=== PATIENT | female | born 1965 | race Caucasian/White ===

== ENCOUNTER 2024-06-22 20:09 | Emergency (ER) | payer OTHER, SELFPAY ==
[2024-06-22 20:13] VITALS: BP 179/97
--- NOTE | 2024-06-22 21:15 | ED.GENMED ---
History of Present Illness
General
Chief Complaint: Head Injury
Source: patient and spouse
Exam Limitations: none
Time Seen by Provider: 06/22/24 21:05
Nursing documentation reviewed up to this point in time: agreed with
History of Present Illness
History of Present Illness:
58-year-old female presents emergency department after tripping and falling getting off of a chair onto grass. No loss of consciousness. She reports mild neck pain and headache. She is on Eliquis. She has a history of herniated disks in her back.
Past History
Past History
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
ED Past Surgical History: , Gynecological and Orthopedic (left hip replacement 2018, back surgery)
Social History
Tobacco: Non-smoker
Alcohol: None
Drug: None
Personal:
Living: with family
Employment: Employed
Family History
Family History: Other (Mother with DVT)
Review of Systems
Review of Systems
Allergies reviewed?: Yes
All Other Systems: Not applicable
Constitutional: Reports no symptoms
EENT: Reports no symptoms
Respiratory: Reports no symptoms
Cardiac: Reports no symptoms
ABD/GI: Reports no symptoms
: Reports no symptoms
Musculoskeletal: Reports neck pain
Skin: Reports no symptoms
Neurological: Reports headache
Endocrine: Reports no symptoms
Hematologic/Lymphatic: Reports no symptoms
Psychiatric: Reports no symptoms
Phy Exam
Physical Exam
Physical Exam:
Physical Exam
General: no apparent distress, not acutely ill
Neck: supple. no meningeal signs. normal posterior pharynx, mild tenderness to palpation at C5
Heart: equal radial pulses.
HEENT: Pupils equal round reactive to light, EOMI
Lungs: no acute respiratory distress.
Abdomen: Nondistended
Neuro: alert and oriented. no focal neurological deficits cranial nerves II through XII intact
Skin: no rash
Psychiatric: well kept. interactive and cooperative
Extremities: no edema. no calf tenderness. negative homans. good distal pulses
Course
Orders/Labs/Results
Orders:
Orders
06/22/24 20:[address] [CT Head W/o Iv Contrast] Urgent
Comment:
Reason For Exam: FALL HITTING HEAD ON ELIQUIS
06/22/24 20:18
Cervical Spine wo Contrast CT [CT Cervical Spine W/o Iv Contr] Urgent
Comment:
Reason For Exam: fall, head strike with neck pain
Vital Signs
Initial and Last Documented VS:
Initial Vital Signs
Temp Pulse Resp BP Pulse Ox
99.2 F 80 18 179/97 97
06/22/24 20:13 06/22/24 20:13 06/22/24 20:13 06/22/24 20:13 06/22/24 20:13
Last Documented Vital Signs
Temp Pulse Resp BP Pulse Ox
99.2 F 80 18 179/97 97
06/22/24 20:13 06/22/24 20:13 06/22/24 20:13 06/22/24 20:13 06/22/24 20:13
MDM/Problems Addressed
Differential Diagnosis Includes:
C-spine injury, intracranial hemorrhage
MDM/Problems Addressed:
58-year-old female with fall, no signs of intracranial hemorrhage, multi level degenerative disc disease on cervical spine. Thyroid nodule seen. Will follow-up with neurosurgery and primary care for ultrasound of thyroid.
*Radiology
Radiology exam reviewed: radiology read reviewed (CT head no acute findings, see cervical spine shows multilevel herniated disks)
*Pulse Oximetry
Patient hypoxic: no
*Critical Care Note
Total Time (30-74mins, 75-104mins- exclusive of procedures): Not Applicable
Patient Management
Social determinants of health affecting care: Living situation and Strong social support
Escalation/DeEscalation of care consider admission/obs:
Admit not indicated
ED Attending Note
-
Portions of this chart may have been created with voice recognition software.� Occasional wrong word or��sound alike� substitutions may have occurred due to the inherent limitations of voice recognition software.
Discharge Plan
Departure
Patient Disposition: Home (Routine Discharge)
Date of Disposition: 06/22/24
Time of Disposition: 21:18
Patient with high blood pressure during this ER visit?: Yes
Condition: Good
Discharge Problem:
Fall, Multiple thyroid nodules, DDD (degenerative disc disease), cervical
Instructions: Head Injury in Adults (DC), Cervical Sprain ED
Prescriptions:
No Action
acetaminophen [Tylenol Extra Strength] 500 MG tablet
1,000 mg PO Q6HPRN PRN (Reason: headache)
ranitidine HCl [Zantac Maximum Strength] 150 MG tablet
150 mg PO HS
metoprolol tartrate 25 MG tablet
25 mg PO DAILY
Referrals:
Amara Jane MD [Active] - Call in 1-3 days for appt
Activity Restrictions/Additional Instructions:
Follow up with primary care to get ultrasound of your thyroid, it showed nodules on the CT.
Discharge Date and Time
Print Language: LAO
== END 2024-06-22 21:42 | disposition home or self-care (01) ==
LOC: EMR 20:09
PROVIDERS: EMERGENCY PHYSICIAN Emergency Medicine; FAMILY PHYSICIAN Physician Assistant Medical
DX: S09.90XA Unspecified injury of head, initial encounter (principal); M54.2 Cervicalgia; R51.9 Headache, unspecified; M50.30 Other cervical disc degeneration, unspecified cervical region; E04.2 Nontoxic multinodular goiter; W01.0XXA Fall on same level from slipping, tripping and stumbling without subsequent striking against object, initial encounter; I10 Essential (primary) hypertension; M51.25 Other intervertebral disc displacement, thoracolumbar region; K21.9 Gastro-esophageal reflux disease without esophagitis; F41.9 Anxiety disorder, unspecified; F32.A Depression, unspecified; M19.90 Unspecified osteoarthritis, unspecified site; Z96.642 Presence of left artificial hip joint; Z79.01 Long term (current) use of anticoagulants; Z88.3 Allergy status to other anti-infective agents
CPT/HCPCS: 99284; 70450; 72125